=== PATIENT | female | born 1935 | race Caucasian/White ===

== ENCOUNTER → 2021-03-03 | Emergency (ER) | payer OTHER ==
[2021-03-03 16:20] LABS: Absolute Lymphocytes (CBC) 1.1 K/uL (0.7-4.9); Hematocrit 39.3 % (36.0-45.0); Lymphocytes % 22.2 % (15.3-44.8); MPV 8.3 fL (7.6-11.3); RBC Red Blood Cell Count 4.42 M/uL (3.86-4.86)
[2021-03-03 16:27] LABS: Urine Blood Trace-intact (Negative); Urine Glucose Negative (Negative); Urine Protein Negative (Negative); Urine Specific Gravity 1.015 (1.005-1.030)
[2021-03-03 16:50] LABS: ALT/SGPT 23 U/L (12-78); AST/SGOT 20 U/L (15-37); Albumin 3.4 g/dL (3.4-5.0); Alkaline Phosphatase 138 U/L (45-117); BUN Blood Urea Nitrogen 9 mg/dL (7-18); Bicarbonate 28 mmol/L (21-32); Bilirubin Direct 0.1 mg/dL (0-0.2); Bilirubin Total 0.6 mg/dL (0.2-1.0); Glucose Level 91 mg/dL (74-106); Lipase 69 U/L (73-393); Potassium 3.3 mmol/L (3.5-5.1); Protein, Total 8.2 g/dL (6.4-8.2); Sodium Level 138 mmol/L (136-145)
--- NOTE | 2021-03-03 17:42 | RAD REPORT ---
EXAM DESCRIPTION: CT - Abdomen Pelvis W Contrast - 03/03/2021 5:27 pm CLINICAL HISTORY: ABD PAIN COMPARISON: No comparisons TECHNIQUE: Biphasic, helical CT imaging of the abdomen and pelvis was performed following 100 ml non -ionic IV contrast. No oral contrast administered. All CT scans are performed using dose optimization technique as appropriate and may include automated exposure control or mA/KV adjustment according to patient size. FINDINGS: No suspicious findings in the lung bases. The liver, spleen, and pancreas show no suspicious findings. Gallbladder is absent. No biliary tree d ilatation. Symmetric renal function is seen with no hydronephrosis or suspicious renal mass. No pyelonephritis o r acute parenchymal process. No bladder abnormalities. No adrenal abnormalities. Uterus and ovaries s how no suspicious findings. No dilated bowel loops or bowel wall thickening. Moderate stool volume in the right-side of the colon . The appendix is normal. No free air, free fluid or inflammatory stranding. No hernia, mass or bulk y lymphadenopathy. No abnormal skin thickening, congestion or edema is seen in the inguinal canals. N o abnormality of the perineum or perineal fat. Disc and bone degenerative changes are present. No acute or pathologic process. IMPRESSION: Contrast enhanced CT abdomen and pelvis showing no acute or emergent finding. Nonacute findings detailed in the body of the report.
--- NOTE | 2021-03-03 18:02 | ER ---
Nurse's Notes [facility] Name: Ana Maria Curtis Age: 85 yrs Sex: Female : 1935 Arrival Date: 03/03/2021 Time: 13:48 Bed 16 Private MD: Denise Wakefield Diagnosis: Zoster [herpes zoster];Generalized abdominal pain Presentation: 03/03 13:56 Chief complaint: Patient's son or daughter states: adult child:"she is having a rash in jd3 her groin area and pelves area due to a latex undergarment. she also is having some bloating and diarrhea.". Coronavirus screen: At this time, the client does not indicate any symptoms associated with coronavirus-19. Ebola Screen: Patient negative for fever greater than or equal to 101.5 degrees Fahrenheit, and additional compatible Ebola Virus Disease symptoms. Initial Sepsis Screen: Does the patient meet any 2 criteria? No. Patient's initial sepsis screen is negative. Does the patient have a suspected source of infection? No. Patient's initial sepsis screen is negative. Risk Assessment: Do you want to hurt yourself or someone else? Patient reports no desire to harm self or others. Onset of symptoms was March 02, 2021. 13:56 Method Of Arrival: Ambulatory jd3 13:56 Acuity: LAURA 3 jd3 Historical: - Allergies: 13:59 Latex, Natural Rubber; jd3 - PMHx: 13:59 Hypertension; skin cancer; jd3 - PSHx: 13:59 Lumpectomy; Cholecystectomy; skin cancer removed; jd3 - Immunization history:: Adult Immunizations up to date, Client reports receiving the 2nd dose of the Covid vaccine. - Social history:: Smoking status: Patient denies any tobacco usage or history of. Screenin:49 Abuse screen: Denies threats or abuse. Denies injuries from another. Nutritional tr6 screening: No deficits noted. Tuberculosis screening: No symptoms or risk factors identified. Fall Risk None identified. Assessment: 15:46 General: Appears in no apparent distress. comfortable, Behavior is calm, cooperative, tr6 appropriate for age. Pain: Complains of pain in pt has a rash that is painful on her left lower abdomen spreading to left lower back. Neuro: No deficits noted. Cardiovascular: No deficits noted. Respiratory: No deficits noted. GI: Reports diarrhea. : No deficits noted. EENT: No deficits noted. Derm: Rash noted that is vesicular, Reports pain. Musculoskeletal: No deficits noted. Vital Signs: 13:59 BP 100 / 61; Pulse 80; Resp 17 S; Temp 97.6(TE); Pulse Ox 98% on R/A; Weight 72.57 kg jd3 (R); Height 5 ft. 3 in. (160.02 cm) (R); Pain 4/10; 13:59 Body Mass Index 28.34 (72.57 kg, 160.02 cm) jd3 ED Course: 13:48 Patient arrived in ED. ds1 13:48 Denise Wakefield MD is Private Physician. ds1 13:57 Triage completed. jd3 14:01 Arm band placed on. jd3 15:03 Darren Conrad PA is PHCP. [facility] 15:03 Alexandria Dumas MD is Attending Physician. [facility] 15:29 Samantha Lin, MIKEL is Primary Nurse. tr6 15:46 Inserted saline lock: 20 gauge in left hand, using aseptic technique. Blood collected. tr6 15:49 Resting quietly. Awaiting lab results, Awaiting CT Scan, Awaiting ED provider tr6 evaluation. 15:49 Patient has correct armband on for positive identification. Placed in gown. Bed in low tr6 position. Call light in reach. Side rails up X 1. Pulse ox on. NIBP on. Door closed. Noise minimized. Visitors limited. Lights dimmed. Moved to private room. Warm blanket given. Diet: Patient is NPO. 15:49 No provider procedures requiring assistance completed. tr6 17:26 Note: [employer] [place] inserted a 24G IV into right wrist for CT exam due to IV being vm2 in patient's hand.. 17:28 CT Abd/Pelvis - IV Contrast Only In Process Unspecified. EDMS 18:01 Alberto Singh MD is Referral Physician. [facility] 18:24 IV discontinued, Pressure dressing applied. [facility] 18:31 IV discontinued, intact, bleeding controlled, No redness/swelling at site. Pressure tr6 dressing applied. Administered Medications: No medications were administered Outcome: 18:01 Discharge ordered by . [facility] 18:31 Discharged to home ambulatory. tr6 18:31 Condition: good 18:31 Discharge instructions given to patient, family, Instructed on discharge instructions, follow up and referral plans. no drinking with medication, medication usage, safety practices, Demonstrated understanding of instructions, follow-up care, medications, Prescriptions given X 3. 18:31 Patient left the ED. tr6 Signatures: Dispatcher [employer] EDMS Darren Conrad PA PA jmm Sanford, Demi ds1 Martinez, Maria 5 Ainsley Oneal 2 Abdi Kim RN RN Samantha Perez RN RN tr6
--- NOTE | 2021-03-03 18:02 | EDPHYS ---
Physician Documentation [facility] Name: Ana Maria Curtis Age: 85 yrs Sex: Female : 1935 Arrival Date: 03/03/2021 Time: 13:48 Bed 16 Private MD: Denise Wakefield ED Physician Alexandria Dumas HPI: 03/03 15:12 This 85 yrs old Female presents to ER via Ambulatory with complaints of jmm Diarrhea, Rash. 15:12 The patient presents to the emergency department with nausea, diarrhea, abdominal pain. jmm The symptoms are aggravated by nothing. The symptoms are alleviated by nothing. Associated signs and symptoms: Pertinent negatives: fever. This is a 55 year old female with a history of htn, that presents to the ED with complaints of abdominal pain, diarrhea, rash. Denies fever. Denies vomiting. . Historical: - Allergies: 13:59 Latex, Natural Rubber; jd3 - PMHx: 13:59 Hypertension; skin cancer; jd3 - PSHx: 13:59 Lumpectomy; Cholecystectomy; skin cancer removed; jd3 - Immunization history:: Adult Immunizations up to date, Client reports receiving the 2nd dose of the Covid vaccine. - Social history:: Smoking status: Patient denies any tobacco usage or history of. ROS: 15:12 Constitutional: Negative for fever, chills, and weight loss, Cardiovascular: Negative jmm for chest pain, palpitations, and edema, Respiratory: Negative for shortness of breath, cough, wheezing, and pleuritic chest pain. 15:12 Skin: Positive for rash. 15:12 All other systems are negative. Exam: 15:12 Constitutional: This is a well developed, well nourished patient who is awake, alert, jmm and in no acute distress. Head/Face: atraumatic. Eyes: EOMI, no conjunctival erythema appreciated ENT: Moist Mucus Membranes Neck: Trachea midline, Supple Chest/axilla: Normal chest wall appearance and motion. Cardiovascular: Regular rate and rhythm. No edema appreciated Respiratory: Normal respirations, no respiratory distress appreciated 15:12 Back: Normal ROM Skin: General appearance color normal MS/ Extremity: Moves all extremities, no obvious deformities appreciated, no edema noted to the lower extremities Neuro: Awake and alert, normal gait Psych: Behavior is normal, Mood is normal, Patient is cooperative and pleasant 15:12 Abdomen/GI: Inspection: vesicular lesions on an erythematous base noted ot the left side of the abdomen, Palpation: soft, moderate abdominal tenderness, in all quadrants. Vital Signs: 13:59 BP 100 / 61; Pulse 80; Resp 17 S; Temp 97.6(TE); Pulse Ox 98% on R/A; Weight 72.57 kg jd3 (R); Height 5 ft. 3 in. (160.02 cm) (R); Pain 4/10; 13:59 Body Mass Index 28.34 (72.57 kg, 160.02 cm) jd3 MDM: 15:12 Patient medically screened. [facility] 18:00 Data reviewed: vital signs, nurses notes. Counseling: I had a detailed discussion with [facility] the patient and/or guardian regarding: the historical points, exam findings, and any diagnostic results supporting the discharge/admit diagnosis, lab results, radiology results, the need for outpatient follow up, to return to the emergency department if symptoms worsen or persist or if there are any questions or concerns that arise at home. ED course: CT negative. patient advised to follow up with GI for further evaluation. Patient is otherwise given strict return precautions. Patient understood and agrees with the plan of care. . 03/03 15:13 Order name: Basic Metabolic Panel; Complete Time: 16:50 [facility] 03/03 15:13 Order name: CBC with Diff; Complete Time: 16:22 [facility] 03/03 15:13 Order name: Hepatic Function; Complete Time: 16:50 [facility] 03/03 15:13 Order name: Lipase; Complete Time: 16:50 [facility] 03/03 15:13 Order name: CT Abd/Pelvis - IV Contrast Only; Complete Time: 18:21 [facility] 03/03 16:27 Order name: Urine Dipstick-Ancillary; Complete Time: 16:49 [facility] 03/03 15:13 Order name: IV Saline Lock; Complete Time: 15:45 [facility] 03/03 15:13 Order name: Labs collected and sent; Complete Time: 15:45 [facility] 03/03 15:13 Order name: Urine Dipstick-Ancillary (obtain specimen); Complete Time: 16:28 [facility] 03/03 16:03 Order name: Labs - recollect needed: chemistries recollect; Complete Time: 16:28 eb Administered Medications: No medications were administered Disposition: 03/03/21 18:01 Discharged to Home. Impression: Zoster [herpes zoster], Generalized abdominal pain. - Condition is Stable. - Discharge Instructions: Abdominal Pain, Adult, Shingles. - Prescriptions for Prednisone 20 mg Oral Tablet - take 1 tablet by ORAL route once daily for 12 days Please take 3 tabs by mouth daily for 3 days, then 2 tabs by mouth daily for 3 days, then 1 tab by mouth daily for 3 days, then 1/2 tab by mouth daily for 3 days.; 20 tablet. Valtrex 1 g Oral Tablet - take 1 tablet by ORAL route every 8 hours for 7 days; 21 tablet. Pepcid 20 mg Oral Tablet - take 1 tablet by ORAL route every 12 hours for 10 days; 20 tablet. - Medication Reconciliation Form, Thank You Letter, Antibiotic Education, Prescription Opioid Use form. - Follow up: Alberto Singh MD; When: 2 - 3 days; Reason: Recheck today's complaints, Continuance of care, Re-evaluation by your physician. Signatures: Dispatcher [employer] EDMS Darren Conrad PA PA jmm Davies, Jonathon, RN RN jd3 Daisha Ross Tiffany, RN RN tr6 Corrections: (The following items were deleted from the chart) 18:31 18:01 03/03/2021 18:01 Discharged to Home. Impression: Zoster [herpes zoster]; tr6 Generalized abdominal pain. Condition is Stable. Forms are Medication Reconciliation Form, Thank You Letter, Antibiotic Education, Prescription Opioid Use. Follow up: Alberto Singh; When: 2 - 3 days; Reason: Recheck today's complaints, Continuance of care, Re-evaluation by your physician. bertha
[2021-03-03 18:41] VITALS: BP 100/61; TEMP 97.6; O2SAT 98
== END ==
LOC: ER 13:47
DX: B02.9 Zoster without complications (principal); I10 Essential (primary) hypertension; Z85.828 Personal history of other malignant neoplasm of skin; Z91.040 Latex allergy status; Z91.048 Other nonmedicinal substance allergy status
CPT/HCPCS: 85025; 80048; 36415; 80076; 81003; 83690; 74177; Q9967